=== PATIENT | male | born 1960 | race Caucasian/White ===

== ENCOUNTER 2017-03-16 08:18 | Day surgery (SDC) | payer OTHER ==
[2017-01-23 10:57] VITALS: BMI 27.5
[2017-03-15 16:09] VITALS: BMI 28.0
[~2017-03-16] VITALS: Ht 165.1 cm; Wt 71.0 kg
[2017-03-16] VITALS (14 sets, daily range): BP systolic 115–144; BP diastolic 63–84; PULSE 56–64; RESP 13–22; Ht 165.1 cm; Wt 71.0 kg
[~2017-03-16 08:18] MED LIST: CEFAZOLIN 2 GM/50 ML (PMX) 50 ML IVPB SCH; DESFLURANE 15 MIN ONE; SOD CHLORIDE 0.9% 1,000 ML IV SCH
[2017-03-16] MEDS ORDERED: METF500T4 PO (10:13)
[2017-03-16] MEDS ORDERED: LISI10TA2 PO (10:16)
[2017-03-16] MEDS ORDERED: INSU100C SQ (10:27)
[2017-03-16] MEDS ORDERED: LANT3I SC (10:28)
[2017-03-16] MEDS ORDERED: MIDAZOLAM 1 MG/ML 2 ML INJ ONE (11:15)
[2017-03-16] MEDS ORDERED: CEFAZOLIN 1 GM INJ ONE ×2 (11:15→12:09)
[2017-03-16] MEDS ORDERED: PROPOFOL 20 ML ONE (11:15)
[2017-03-16] MEDS ORDERED: ROCURONIUM 50 MG INJ ONE (11:15)
[2017-03-16] MEDS ORDERED: ROPIVACAINE 0.2% 20 ML VIAL ONE (11:16)
[2017-03-16] MEDS ORDERED: LIDOCAINE 1% (MDV) 20 ML INJ ONE (11:16)
[2017-03-16] MEDS ORDERED: FENTAnyl 50 MCG/ML VIAL ONE (11:17)
[2017-03-16] MEDS ORDERED: BUPIVACAINE 0.25% (MPF) 10 ML 10 ML VIAL ONE (11:32)
[2017-03-16] MEDS ORDERED: ONDANSETRON 4 MG INJ ONE (12:11)
[2017-03-16] MEDS ORDERED: DEXAMETHASONE 4 MG/ML 1 ML INJ ONE (12:11)
[2017-03-16] MEDS ORDERED: SUGAMMADEX SODIUM 200 MG/2 ML VIAL IV ONE (12:33)
[2017-03-16] MEDS ORDERED: KETOROLAC 30 MG INJ ONE (12:33)
--- NOTE | 2017-03-16 12:43 | OPR ---
Date/Time of Note Date/Time of Note DATE: 03/16/17 TIME: 12:38 Operative Report Procedure Date: Mar 16, 2017 Preoperative Diagnosis symptomatic gallstones Postoperative Diagnosis same Operation Performed 1. laparoscopic cholecystectomy 2. therapeutic injection of subcutaneous marcaine cpt code 25188 Surgeon: Rhoda STALEY Anesthesia Type: general Estimated Blood Loss: minimal Specimens gallbladder Grafts/Implants: none Complications: no Indications 56-year-old male with subsided gallstones. He requires surgical excision of his gallbladder. Risks alternatives benefits and percent were discussed with the patient. Patient's best understanding since the operation. Procedure Description Patient taken to the OR and prepped and draped in usual sterile fashion. Surgical timeout is performed. IV antibiotics given. Infraumbilical incision is made transversely with a 15 blade. Dissection cautery was carried onto the fascia. The fascia was grasped with Cori's and divided with curved Clemons scissors. 0 Vicryl U stitch was placed into the fascia. Balloon Mosley trocar is introduced pneumoperitoneum is established. Midepigastric 12 mm optical trocar right upper quadrant and flank 5 mm ulcers was placed under direct visualization. Upon initial inspection there is adhesions to the gallbladder which were taken down bluntly. The gallbladder was grasped and retracted in the lateral and outward direction. Lateral dissection was initiated with cautery to mobilize the cystic duct. The cystic duct and cystic artery are carefully dissected out. The critical view is established. The cystic duct is divided with 3 clips proximal and due to the thickened tissue the distal area was divided with the 35 mm echelon vascular stapler. The cystic artery was divided with 3 clips proximally clipped distal. Gallbladder signal of the gallbladder bed there is good hemostasis gallbladder is retrieved using a Endo catch bag. Ports removed under direct visualization. 0 Vicryl U stitch was tied down. Skin is closed using skin lyndsay. Therapeutic subcutaneous Marcaine is injected through all port sites. Dry dressings were applied. Rhoda STALEY Mar 16, 2017 12:43
[2017-03-16] MEDS ORDERED: HYDROCODONE/APAP (5/325) TAB PO ONE (13:00)
[2017-03-16] MEDS: HYDROmorphONE (0.2 MG/ML) 10ML SYG IV PRN ×3 (13:08→13:20)
[2017-03-16] MEDS ORDERED: HYDROmorphONE (0.2 MG/ML) 10ML SYG IV PRN (13:30)
[2017-03-16] MEDS ORDERED: FENTAnyl 50 MCG/ML VIAL IV PRN (13:30)
== END 2017-03-16 15:00 | disposition home or self-care (01) ==
LOC: SDS 08:18
PROVIDERS: ATTEND Surgery
DX: K80.10 Calculus of gallbladder with chronic cholecystitis without obstruction (principal)
CPT/HCPCS: 47562; 88304; J0690; J1100; J1170; J1885; J2250; J2405; J2795; J3010